=== PATIENT | female | born 1950 | race Caucasian/White ===

== ENCOUNTER 2019-07-22 10:48 | Outpatient (CLI) | payer MEDICARE, SELFPAY ==
--- NOTE | ~2019-07-22 | XR_ITS ---
XR chest 2V DATE: 07/22/2019 11:25 INDICATION: Pneumonia TECHNIQUE: 2 views COMPARISON: 08/19/2018 2 view chest FINDINGS: Cardiomegaly. Mild discoid atelectasis or more likely scarring at the lower lung zones. No pulmonary infiltrate or consolidation. No pulmonary vascular congestion or pleural effusion or pneumo thorax. Osteopenia. Dextroscoliosis of the thoracolumbar spine. IMPRESSION: Cardiomegaly Mild discoid atelectasis or scarring in the lower lung zones; no pulmonary consolidation is evident Reviewed, dictated and finalized at location B. IMPRESSION: Cardiomegaly Mild discoid atelectasis or scarring in the lower lung zones; no pulmonary cons olidation is evident
--- NOTE | ~2019-07-22 | US_ITS ---
EXAMINATION: US thyroid DATE: 07/22/2019 11:25 INDICATION: Nontoxic single thyroid nodule. TECHNIQUE: Multiple ultrasound images of the thyroid were obtained. COMPARISON: None. FINDINGS: The right thyroid lobe measures 5.6 x 1.8 x 1.9 cm. The left thyroid lobe measures 5.2 x 1.7 x 2.6 c m. In the right thyroid lobe, there is a 1.6 cm solid, hypoechoic, cslcb-pnvd-fimb nodule with ill-d efined margin without echogenic foci (TI-RADS TR4). In the left thyroid lobe, there is a 2.5 cm solid , hypoechoic, oevav-gckq-lwls nodule with ill-defined margin without echogenic foci (TR4). In the lef t thyroid lobe, there is a 10 mm solid, hypoechoic, zfspc-hasf-qnvx nodule with smooth margin without echogenic foci (TR4). IMPRESSION: 1. Multinodular goiter. Ultrasound-guided fine needle aspiration of the 2 largest nodules is recommen ded. Reviewed, dictated and finalized at location A. IMPRESSION: 1. Multinodular goiter. Ultrasound-guided fine needle aspiration of the [address] nodules is recommended.
== END 2019-07-22 10:49 ==
PROVIDERS: PCP Internal Medicine; Visit Provider Nurse Practitioner
DX: J18.9 Pneumonia, unspecified organism (principal); E04.2 Nontoxic multinodular goiter; I51.7 Cardiomegaly
CPT/HCPCS: 71046; 76536

== ENCOUNTER 2019-09-01 13:24 | Outpatient (CLI) | payer MEDICARE, SELFPAY ==
--- NOTE | ~2019-09-01 | US_ITS ---
EXAMINATION: US biopsy thyroid, US FNA additional DATE: 09/01/2019 14:59 INDICATION: Thyroid nodules. TECHNIQUE: The procedure and its benefits, risks, and benefits were discussed with the patient. Risks specifical ly discussed included bleeding. The patient verbalized understanding of the risks and agreed to proce ed. The neck was prepped and draped in the usual sterile manner. 1% lidocaine was used for local ane sthesia. 5 passes were made with a 25G needle into the lesion in right thyroid lobe. Appropriate ne edle location was documented with continuous sonographic guidance. 5 passes were made with a 25-gauge needle into the lesion in left thyroid lobe. Appropriate needle lo cation was documented with continuous sonographic guidance. There were no immediate complications. Th e patient understood to call the ordering physician for results after a week and a half and verbalize d that understanding. FINDINGS: Grayscale ultrasound images demonstrate needles advanced into a 1.6 cm nodule in right thyroid lobe f or biopsy. Grayscale ultrasound images demonstrate needles advanced into a 2.5 cm nodule in left thyr oid lobe. IMPRESSION: 1. Ultrasound-guided fine needle aspiration of a right thyroid nodule. 2. Ultrasound-guided fine-needle aspiration of a left thyroid nodule. Reviewed, dictated and finalized at location A. IMPRESSION: 1. Ultrasound-guided fine needle aspiration of a right thyroid nodule. 2. Ultrasound-guided fine-needle aspiration of a left thyroid nodule.
== END 2019-09-01 13:25 | disposition home or self-care (01) ==
PROVIDERS: PCP Internal Medicine; Visit Provider Internal Medicine
DX: E04.1 Nontoxic single thyroid nodule (principal)
CPT/HCPCS: 10005; 10006; 60100; 76942; 88108; 88173; 88305

== ENCOUNTER 2019-09-20 13:27 | Outpatient (CLI) | payer MEDICARE, SELFPAY ==
--- NOTE | ~2019-09-20 | US_ITS ---
EXAMINATION: US FNA w image guidance DATE: 09/20/2019 14:46 INDICATION: Nontoxic right thyroid nodule. TECHNIQUE: The procedure and its benefits, risks, and benefits were discussed with the patient. Risks specifical ly discussed included bleeding. The patient verbalized understanding of the risks and agreed to proce ed. The neck was prepped and draped in the usual sterile manner. 1% lidocaine was used for local ane sthesia. 5 passes were made with a 25G needle into the lesion. Appropriate needle location was docu mented with continuous sonographic guidance. There were no immediate complications. The patient unde rstood to call the ordering physician for results after a week and a half and verbalized that underst anding. FINDINGS: Grayscale ultrasound images demonstrate needles advanced into a 1.6 cm nodule in right thyroid lobe f or biopsy. IMPRESSION: 1. Ultrasound-guided fine needle aspiration of a right thyroid nodule. Reviewed, dictated and finalized at location A.
== END 2019-09-20 13:28 | disposition home or self-care (01) ==
LOC: ANHIMG 13:29
PROVIDERS: PCP Internal Medicine; Visit Provider Internal Medicine
DX: E04.1 Nontoxic single thyroid nodule (principal)
CPT/HCPCS: 10005; 88108; 88173; 88305

== ENCOUNTER 2019-12-14 11:47 | Outpatient (CLI) | payer MEDICARE, SELFPAY ==
--- NOTE | ~2019-12-14 | US_ITS ---
EXAMINATION: US renal BI DATE: 12/14/2019 12:36 INDICATION: Kidney stones. Bilateral flank pain. TECHNIQUE: Multiple ultrasound grayscale images of the kidneys were obtained. COMPARISON: Abdomen radiographs 06/15/2019 FINDINGS: The right kidney measures 9.0 x 5.4 x 5.0 cm. The left kidney measures 11.5 x 5.5 x 5.0 cm. The kidne ys demonstrate normal parenchymal echogenicity. There is a 1.5 cm cyst in right kidney. There is a sh adowing stone in right kidney measuring approximately 11 mm. There is no hydronephrosis. The bladder is decompressed. IMPRESSION: 1. Nonobstructing right kidney stone. Reviewed, dictated and finalized at location B.
--- NOTE | ~2019-12-14 | XR_ITS ---
XR abdomen/kub 1V 12/14/2019 12:21 Indication: Kidney stone Procedure: KUB Comparison: 02/20/2018 Findings: Bowel gas pattern is nonobstructive. There is a large amount of retained fecal material in the colon which limits evaluation for renal stones. Nonobstructive bowel gas pattern. There is modera te lower thoracic and lumbar spondylosis with dextroscoliosis. No acute osseous abnormality. There ar e cholecystectomy clips. Impression: 1: Nonobstructive bowel gas pattern with moderate colonic fecal loading. Limited visualization for re nal stones. Reviewed, dictated and finalized at location A. Impression: 1: Nonobstructive bowel gas pattern with moderate colonic fecal loading. Limite d visualization for renal stones.
== END 2019-12-14 11:48 ==
PROVIDERS: PCP Internal Medicine; Visit Provider Urology
DX: N20.0 Calculus of kidney (principal)
CPT/HCPCS: 74018; 76775

== ENCOUNTER 2020-01-10 14:02 | Inpatient (IN) | payer MEDICARE, SELFPAY ==
[2020-01-10] VITALS (9 sets, daily range): BP systolic 97–142; BP diastolic 56–90; PULSE 72–130; RESP 14–20; TEMP 36.3–36.7; O2SAT 96–100; BMI 52.0
--- NOTE | ~2020-01-10 | XR_ITS ---
XR chest 2V 01/10/2020 15:30 Indication: Shortness of breath. CHF. COPD Procedure: AP and lateral views of the chest Comparison: Comparison to multiple prior studies sequentially, with oldest reviewed study dated 10/30. Findings: Moderate cardiomegaly. No focal air space disease, pulmonary edema, pleural effusion or nicolle pected pneumothorax. No acute osseous abnormality. Impression: 1: No acute cardiopulmonary disease. Reviewed, dictated and finalized at location A. Impression: 1: No acute cardiopulmonary disease.
--- NOTE | 2020-01-10 14:20 | ECG_ITS ---
Measurements Intervals [place] Rate: 131 P: NC: 0 QRS: 6 QRSD: 100 T: 84 QT: 280 QTc: 413 Interpretive Statements ATRIAL FIBRILLATION WITH RAPID VENTRICULAR RESPONSE LOW QRS VOLTAGE IN PRECORDIAL LEADS CANNOT RULE OUT SEPTAL INFARCT, AGE INDETERMINATE ST-T WAVE ABNORMALITY IN HIGH LATERAL LEADS- CONSIDER ISCHEMIA ABNORMAL ECG Electronically Signed On 01-10-2020 14:26:55 CDT by Tyrone Thompson D.O.
[2020-01-10 14:35] LABS: Basophils Percent Auto 0.2 % (0.2-1.2); Eosinophils Absolute Auto 0.2 K/mm3 (0-0.3); Eosinophils Percent Auto 1.3 % (0-4.4); Hematocrit 37.3 % (37.0-47.0); Hemoglobin 11.3 g/dL (12.0-15.0); Immature Granulocyte Absolute 0.12 K/mm3 (0.00-0.031); Immature Granulocyte Percent A 1.1 % (0-0.5); Lymphocytes Percent Auto 11.6 % (18.3-44.2); Mean Corpuscular HGB Conc 30.3 g/dl (32-36); Mean Corpuscular Hemoglobin 25.7 pg (26-34); Mean Corpuscular Volume 84.8 fl (80-100); Mean Platelet Volume 9.6 fl (7.4-10.4); Monocytes Absolute Auto 0.5 K/mm3 (0.1-0.6); Monocytes Percent Auto 4.2 % (2.6-8.5); Neutrophils Absolute Auto 9.2 K/mm3 (1.3-6.7); Neutrophils Percent Auto 81.6 % (45.5-73.1); Platelet Count Result 262 k/mm3 (150-375); Red Cell Distribution Width 15.7 % (11.5-14.5); White Blood Count 11.2 K/mm3 (4.5-10.0)
[2020-01-10 14:46] LABS: Anion Gap 3 mmol/L (8-16); Blood Urea Nitrogen 31 mg/dL (7-17); Calcium 9.9 mg/dL (8.4-10.2); Carbon Dioxide 34 mmol/L (22-30); Chloride 100 mmol/L (98-107); Estimated CRCL calculation 60 ml/min; Estimated Glomerular Filt Rate 50; Glucose 167 mg/dL (65-105); Potassium 4.1 mmol/L (3.4-5.0); Sodium 137 mmol/L (137-145)
[2020-01-10 15:02] LABS: NT Pro B Type Natriuretic Pept 2220 PG/ML (5-100); Troponin I 0.091 ng/mL (0.000-0.034)
--- NOTE | 2020-01-10 15:26 | ED.SOB ---
HPI - SOB/Dyspnea General Chief Complaint: Arrhythmia/Palpitations Stated Complaint: fast heart rate Time Seen by Provider: 01/10/20 14:40 Source: patient and old records reviewed Mode of arrival: ambulatory Limitations: no limitations History of Present Illness HPI Narrative: 69-year-old female Past medical history of COPD chronic atrial fibrillation lymphedema diabetes and morbid obesity Recently she was hospitalized at [facility] in [place], possibly for pneumonia, although on review of the records which have been scanned in it does not sound like that diagnosis was particularly clear-cut She had a follow-up appointment in the office today with Dr. 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 Dr. Newell does not believe that she is actually taking Bystolic MD elicited complaint: shortness of breath Pertinent past history: COPD, diabetes, pneumonia and other (A. fib) Onset (ago): day(s) Related Data Home Medications Medication Instructions Recorded Confirmed bisoprolol fumarate 5 mg tablet 5 mg PO DAILY 05/06/19 01/10/20 fluticasone fur. 100 mcg-umeclid 1 inhalation INHALATION Q24H 05/06/19 01/10/20 62.5 mcg-vilant 25 mcg inhalat.powder montelukast 10 mg tablet 10 mg PO DAILY 05/06/19 01/10/20 prochlorperazine maleate 10 mg See Rx Instructions .ROUTE 11/22/19 01/10/20 tablet .COMPLEX tablet sertraline 25 mg tablet 25 mg PO DAILY tablet 11/22/19 11/22/19 insulin glargine 100 unit/mL (3 See Rx Instructions SUB-Q DAILY ml 01/06/20 01/10/20 mL) subcutaneous pen furosemide 40 mg tablet 60 mg PO QAM tablet 01/10/20 01/10/20 lisinopril 10 mg tablet 5 mg PO DAILY tablet 01/10/20 01/10/20 rivaroxaban [Xarelto] mg 01/10/20 01/10/20 Allergies Allergy/AdvReac Type Severity Reaction Status Date / Time clindamycin Allergy Unknown Dry Mouth Verified 01/10/20 15:34 Penicillins Allergy Unknown Unknown, Verified 01/10/20 15:34 per patient report Review of Systems Review of Systems: All systems reviewed & are unremarkable except as noted in HPI and below Constitutional: Constitutional: Denies chills, Reports fatigue, Denies fever(s), Denies headache(s) and Denies night sweats Eyes: Eyes: Reports no additional eye complaints, Denies loss of vision and Denies other visual disturbances ENT: Denies headache(s), Denies hoarseness, Denies nasal congestion and Denies sore throat Cardiovascular: Cardiovascular: Denies chest pain, Denies leg edema, Denies palpitations and Denies dyspnea Respiratory: Respiratory: Denies cough, Reports dyspnea and Denies wheezing Gastrointestinal: Gastrointestinal: Denies abdominal pain, Denies diarrhea, Denies nausea and Denies vomiting Genitourinary: Genitourinary: Denies hematuria, Denies urinary frequency and Denies dysuria Musculoskeletal: Musculoskeletal: Denies abnormal gait, Denies deformity, Reports joint swelling, Denies muscle weakness and Denies numbness Integumentary/Breasts: Skin/Breast: Reports rash, Denies unusual bruising and Denies wounds Neurologic: Denies abnormal gait, Denies headache(s), Denies focal weakness, Denies loss of vision and Denies numbness Psychiatric: Psychiatric: Reports no additional psychiatric complaints Endocrine: Endocrine: Reports fatigue and Denies palpitations Hematologic/Lymphatic: Hematologic/Lymphatic: Denies easy bleeding and Denies easy bruising Allergic/Immunologic: Allergic/Immunologic: Denies wheezing PMFSH Social History Social History (Reviewed 01/10/20 @ 13:25 by Uma
[2020-01-10] MEDS: ASPIRIN 81 MG CHEWABLE TABLET 324 MG PO (15:58)
[2020-01-10] MEDS: METOPROLOL TARTRATE INJ 5 MG/5 ML VIAL 15 MG (15:58)
[2020-01-10 17:00] LABS: INR 1.1; Partial Thromboplastin Time 25.6 SECONDS (22.3-36.8)
[2020-01-10] MEDS: BUMETANIDE INJ 1 MG/4 ML VIAL IV PUSH (18:00)
--- NOTE | 2020-01-10 18:33 | PC.NURSE ---
This patient, Teena Luogn, was admitted to IMU Room 206-01. Patient/family oriented to hospital policies and general routines including ID bracelet, bed and alarms, visiting hours, pain management, procedures, bathroom and other care routines, personal items, smoking policy, room service/diet, and visiting hours. Valuables list has been completed. Information on how to activate the Rapid Response Team has been discussed. Patient/Family are encouraged to report perceived risks to care and to ask questions if they do not understand what they are told or what they should do.
[2020-01-10 18:37] LABS: Troponin I 0.092 ng/mL (0.000-0.034)
[2020-01-10 21:22] LABS: Troponin I 0.084 ng/mL (0.000-0.034)
[2020-01-10] MEDS: oxyCODONE HCL (*CRX) 5 MG TAB IR 15 MG PO (21:40)
[2020-01-10] MEDS: LORazepam (*CRX) 0.5 MG TABLET PO (21:41)
[2020-01-10] MEDS: FUROSEMIDE INJ 40 MG/4 ML VIAL IV PUSH (21:41)
[2020-01-10] MEDS: GABAPENTIN 300 MG CAPSULE PO (21:41)
[2020-01-10] MEDS: ACETAMINOPHEN 325 MG TABLET 650 MG PO (21:41)
[2020-01-10] MEDS: INSULIN GLARGINE (*BKC) 100 UNITS/ML 6 UNITS SUB-Q (21:43)
[2020-01-10 21:48] LABS: Glucose Point of Care 189 (65-105)
[2020-01-10] MEDS: RIVAROXABAN 20 MG TABLET PO (22:14)
--- NOTE | 2020-01-10 22:49 | PM.IMHP ---
H&P: HPI History of Present Illness Date/Time: 01/10/20 22:49 Chief complaint: AF W/RVR,ELEVATED TROPONION,CHF Narrative: Teena Luong is a 69 year old female with a past medical history of systolic heart failure, paroxysmal atrial fibrillation, obstructive sleep apnea and chronic lymphedema who presented to the ER after referral from primary care physician's office due to shortness of breath and AFib RVR.The patient reports that since she was discharged from [facility] on the she has been having intermittent episodes of heart racing. These episodes can occur while she is sitting still . They are accompanied by increasing shortness of breath. She denies any chest pain. She has chronic lymphedema and states that her legs are always swollen. She cannot tell if she has had more edema. She has been compliant with her home Lasix. When she was discharged from [facility] her Lasix was increased from 40 mg a day to 60 mg a day. 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 Ling at [place]. She has not been compliant with her CPAP. She has not used it in 6-8 months. She has not been able to sleep laying in bed for about 6-8 months and is sleeping in a recliner. She reports that she cannot get her legs up into her bed because it is too high. Usually when she does sleep in a bed she sleeps on her stomach. She denies any cough, congestion, fevers or chills. Review of Systems Review of Systems: Narrative: 12 systems were reviewed with pertinent positives and negatives per HPI. Except as documented in the HPI, all other systems were reviewed and are negative. [facility] Past Medical History Medical History (Updated 01/10/20 @ 23:29 by Bethany Santa DO) BMI greater than 40 Chronic kidney disease, stage III (moderate) Chronic obstructive pulmonary disease, unspecified Chronic respiratory failure with hypoxia, on home O2 therapy Chronic systolic heart failure Degenerative joint disease of knee Essential (primary) hypertension Hyponatremia Iron deficiency anemia Lumbar degenerative disc disease with chronic lumbago Lymphedema of both lower extremities Memory loss Moderate episode of recurrent major depressive disorder Nephrolithiasis right ureteral stent September 2019 with cystoscopy and right ureters copy with laser lithotripsy with stent exchange managed by Dr. Chung LEONCIO on CPAP Paroxysmal atrial fibrillation Primary osteoarthritis of both knees Pulmonary hypertension Thyroid Nodule benign pathology September 2019 Type 2 diabetes mellitus with other specified complication Unspecified diastolic (congestive) heart failure Vitamin D deficiency Vocal cord paralysis Surgical History Surgical History (Updated 01/10/20 @ 23:15 by Bethany Santa DO) History of section x3 History of dilation and curettage Hx of tonsillectomy Normal colonoscopy July 2009 demonstrating internal hemorrhoids Family History Family History Mother Carcinoma of colon, Onset Age: 59 Sibling Family history of malignant melanoma Family history of arthritis Acute myocardial infarction Chronic obstructive pulmonary disease Congestive heart failure Father Brain aneurysm Daughter , 2014 Cholangiocarcinoma Sibling Congestive heart failure Skin cancer Social History Social History (Updated 01/10/20 @ 23:21 by Bethany Santa DO) Social History: She is and lives in [facility] with her 15-year-old grandson and twin 17-year-old granddaughter is that she is raised since her daughter in 2014. Surrogate decision maker: Daphnie Luong Code status: Full code Primary care provider: Dr. Alden Newell Smoking status: Never smoker Second hand tobacco smoke exposure: Yes () Alcohol intake: never Substance use: never Spiritual care concerns: No Meds Home Medications and Allergies Home Medications Medic
[2020-01-11] VITALS (14 sets, daily range): BP systolic 97–118; BP diastolic 54–91; PULSE 64–106; RESP 18–22; TEMP 35.6–37.1; O2SAT 95–100; BMI 52.0
--- NOTE | 2020-01-11 | ECHO_ITS ---
Patient Info Name: Teena Luong Age: 69 years : 1950 Gender: Female Ht: 64 in Wt: 302 lbs BSA: 2.57 m2 HR: 104 bpm BP: 111 / 91 mmHg Heart Rhythm: Atrial Fibrillation Technical Quality: Good Exam Date: 01/11/2020 2:20 PM Exam Location: [facility] Pul[facility] Patient Status: Inpatient Admit Date: 01/10/2020 Staff Ordering Physician: Juan Ramon Engle MD Fire Hose Curer: Ricardo Herrera, BOAZCS, RT Attending Provider: Dean Shankar MD Referring Physician: Oniel SEGUNDO; Exam Type: CA echo doppler color flow Study Info Indications I27.0 - Primary pulmonary hypertension Complete two-dimensional, color flow and Doppler transthoracic echocardiogram is performed. Strain analysis performed. Summary 1. Complete two-dimensional, color flow and Doppler transthoracic echocardiogram is performed. 2. Left ventricular chamber dimension is mildly enlarged. 3. Left ventricular systolic function is mildly reduced, estimated at 45-50%. 4. There is mildly increased left ventricular wall thickness. 5. The left ventricular diastolic function is abnormal. 6. Global longitudinal strain is abnormal at -11 %. 7. Right ventricular chamber dimension is moderately enlarged. 8. Right ventricular systolic function is reduced. 9. Left atrial chamber dimension is severely enlarged. 10. Right atrial chamber dimension is severely enlarged. 11. There is moderate mitral valve regurgitation. 12. There is mild tricuspid valve regurgitation. 13. Moderate pulmonary hypertension, estimated pulmonary arterial systolic pressure is 51 mmHg. 14. Strain analysis performed. Left Ventricle Left ventricular chamber dimension is mildly enlarged. Left ventricular systolic function is mildly reduced, estimated at 45-50%. There is mildly increased left ventricular wall thickness. The left ventricular diastolic function is abnormal. Global longitudinal strain is abnormal at -11 %. Right Ventricle Right ventricular chamber dimension is moderately enlarged. Right ventricular systolic function is reduced. Left Atria Left atrial chamber dimension is severely enlarged. Right Atria Right atrial chamber dimension is severely enlarged. Atrial Septum Intact interatrial septum visualized by color flow imaging. Aortic Valve The aortic valve is trileaflet. There is mild aortic valve sclerosis. There is no aortic valve stenosis. There is trace aortic valve regurgitation. Pulmonic Valve The pulmonic valve is normal. There is no pulmonic valve stenosis. There is trace pulmonic regurgitation. Mitral Valve The mitral valve has calcified annulus. There is no mitral valve stenosis. There is moderate mitral valve regurgitation. Tricuspid Valve The tricuspid valve leaflets are normal. There is no significant tricuspid valve stenosis. There is mild tricuspid valve regurgitation. Moderate pulmonary hypertension, estimated pulmonary arterial systolic pressure is 51 mmHg. Pericardium/Pleural The pericardium appears normal. There is trivial pericardial effusion. Inferior Vena Cava Dilated inferior vena cava with <50% collapse upon inspiration consistent with elevated right atrial pressure, 15 mmHg. Aorta The aortic root size at the sinus of Valsalva is normal. The prox ascending aorta size is normal. Left Ventricular Outflow Tract Name Value Normal
[2020-01-11 07:41] LABS: Glucose Point of Care 114 (65-105)
[2020-01-11] MEDS: lisinopriL 5 MG TABLET PO (08:54)
[2020-01-11] MEDS: ASPIRIN 81 MG CHEWABLE TABLET PO (08:54)
[2020-01-11] MEDS: MONTELUKAST SODIUM 10 MG TABLET PO (08:55)
[2020-01-11] MEDS: SERTRALINE HCL 50 MG TABLET PO (08:55)
[2020-01-11] MEDS: INSULIN GLARGINE (*BKC) 100 UNITS/ML 14 UNITS SUB-Q (08:58)
[2020-01-11] MEDS: oxyCODONE HCL (*CRX) 5 MG TAB IR 15 MG PO ×3 (09:14→21:15)
[2020-01-11] MEDS: FUROSEMIDE INJ 40 MG/4 ML VIAL IV PUSH ×2 (09:16→21:15)
[2020-01-11 10:04] LABS: Anion Gap 5 mmol/L (8-16); Blood Urea Nitrogen 28 mg/dL (7-17); Calcium 9.3 mg/dL (8.4-10.2); Carbon Dioxide 37 mmol/L (22-30); Chloride 96 mmol/L (98-107); Estimated CRCL calculation 61 ml/min; Estimated Glomerular Filt Rate 50; Glucose 154 mg/dL (65-105); Potassium 4.2 mmol/L (3.4-5.0); Sodium 138 mmol/L (137-145)
--- NOTE | 2020-01-11 10:11 | PM.CNCAR ---
Assessment and Plan Assessment and plan (1) Persistent atrial fibrillation: Code(s): I48.19 - Other persistent atrial fibrillation Status: Acute Assessment and Plan: patient has persistent atrial fibrillation. Continue current beta-ty without change. Continue Xarelto. (2) CHF (congestive heart failure): Qualifiers: Heart failure chronicity: acute on chronic Heart failure type: diastolic Qualified Code(s): I50.33 - Acute on chronic diastolic (congestive) heart failure Code(s): I50.9 - Heart failure, unspecified Status: Acute Assessment and Plan: It is likely diastolic in etiology plus/minus right heart failure from untreated sleep apnea. furosemide 40 mg IV q.12 hours. Potassium replacement to keep above 4.0. Continue her current lisinopril dose. 2D echocardiogram and Doppler will be ordered. okay to move off of IMU and onto Medicine with telemetry (3) Elevated troponin: Code(s): R79.89 - Other specified abnormal findings of blood chemistry Status: Acute Assessment and Plan: Not related to ACS. 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 Meraz at [place]. She has a history of persistent atrial fibrillation, sleep apnea, chronic lymphedema, right heart failure as well as previously to cardiomyopathy which has improved with rate control. Ejection fraction in October 2019 had increased up to 60% with moderate pulmonary hypertension RVSP of 50-55. She has been hospitalized twice at [facility] for pneumonia. She went home and progressively has been more short of breath since discharged on the 04 of January. She has spells whenever she feels like she simply can't breathe. Will last for several hours until she takes an Ativan calms herself down. She came to hospital because of the symptoms and she was found to be in atrial fibrillation with rapid ventricular response. She was given IV diuretics. She is now feeling better. She does have worsening palpitations during the times in which she is short of breath. She denies any syncope, presyncope, paroxysmal nocturnal dyspnea, orthopnea. She has edema which is actually better than usual. No significant bleeding problems. Cardiac history consists of a normal coronary angiogram several years ago. Atrial fibrillation which failed antiarrhythmic therapy and she is now on rate control strategy. Chronic anticoagulation. She also has right heart enlargement and RV systolic dysfunction probably from untreated sleep apnea Prieb. Pulmonary pressures most recently around 55 mmHg. Review of Systems Review of Systems: All systems reviewed & are unremarkable except as noted in HPI and below Constitutional: Constitutional: Reports weakness Eyes: Eyes: Denies blurry vision ENT: Reports Normal hearing present and Denies epistaxis Cardiovascular: Cardiovascular: Denies chest pain, Reports pedal edema and Reports leg edema Respiratory: Respiratory: Reports dyspnea and Reports dy
[2020-01-11 12:26] LABS: Glucose Point of Care 122 (65-105)
[2020-01-11] MEDS: bisoproloL fumarate 5 MG TABLET 10 MG PO (12:42)
--- NOTE | 2020-01-11 15:00 | PM.IMPN ---
Progress Note: A&P Assessment and Plan (1) Uncontrolled atrial fibrillation: Code(s): I48.91 - Unspecified atrial fibrillation Status: Acute Assessment and Plan: the patient's heart rate has been well controlled since she received a dose of IV metoprolol in the ER and now back on her maintenance beta-ty Cardiology has been consulted regarding adjustments and cardiac medication. and no further changes made. (2) Elevated troponin: Code(s): R79.89 - Other specified abnormal findings of blood chemistry Status: Acute Assessment and Plan: Secondary to demand ischemia. The patient's troponins are trending downward no true ischemic event. (3) CHF (congestive heart failure): Qualifiers: Heart failure chronicity: acute on chronic Heart failure type: diastolic Qualified Code(s): I50.33 - Acute on chronic diastolic (congestive) heart failure Code(s): I50.9 - Heart failure, unspecified Status: Acute Assessment and Plan: Acute on chronic CHF likely due to medication non adherence and uncontrolled atrial fibrillation. Patient received 1 dose of IV Bumex in the ER. Will hold the patient's home Lasix 60 mg daily and continue patient on Lasix 40 mg IV b.i.d.. (4) Sleep apnea: Code(s): G47.30 - Sleep apnea, unspecified Status: Acute Assessment and Plan: the patient is noncompliant with her CPAP therapy. The importance of CPAP therapy in treatment of atrial fibrillation in heart failure was discussed with the patient. She is willing to try a his CPAP. Subjective Date/time seen: 01/11/20 15:00 Interval history: Date visit of visit 01/10. 69-year-old hypertensive type 2 diabetic chronic AFib and history of diastolic heart failure admitted with increasing shortness of breath. Found to be in rapid AFib and with rate controlled and IV diuresis she is feeling better. States that her edema is not as bad as it usually is. Exam Narrative: Exam Narrative: Blood pressure 110/80 pulse is 90 irregular sat 98% on 3 L nasal cannula afebrile neck supple no adenopathy pupils equal reactive to light sclera anicteric lungs clear no wheezing or consolidation CV irregular no murmurs heard abdomen obese nontender no masses extremities some venous stasis changes and lymphedema type picture but there is some wrinkling of the skin which is indication there had been more edema in the past which she agrees to. Still some pitting. Neuro alert cooperative no focal deficits Objective Data Vital Signs Vital Signs: Vital Signs - 24 hr 01/10/20 15:33 01/10/20 15:47 01/10/20 15:58 Temperature Pulse Rate 112 H 88 112 H Respiratory Rate 15 14 Blood Pressure 124/56 L 136/71 Pulse Oximetry 96 100 01/10/20 17:15 01/10/20 18:55 01/10/20 19:29 Temperature 36.3 C L 36.6 C Pulse Rate 87 83 72 Respiratory Rate 17 20 18 Blood Pressure 142/90 H 122/73 97/57 L Pulse Oximetry 96 100 97 01/10/20 20:00 01/10/20 22:00 01/11/20 00:00 Temperature 36.6 C Pulse Rate 72 90 96 Respiratory Rate 18 20 Blood Pressure 106/60 Pulse Oximetry 97 97 01/11/20 02:00 01/11/20 04:00 01/11/20 06:00 Temperature 36.6 C Pulse Rate 89 88 83 Respiratory Rate 20 Blood Pressure 101/55 L Pulse Oximetry 97 01/11/20 08:12 01/11/20 10:00 01/11/20 10:46 Temperature 35.6 C L Pulse Rate 87 82 Respiratory Rate 22 H Blood Pressure 102/72 118/71 Pulse Oximetry 100 95 01/11/20 12:00 01/11/20 12:42 Temperature 37.1 C Pulse Rate 91 100 Respiratory Rate 22 H Blood Pressure 111/91 H Pulse Oximetry 100 Intake/Output Intake/Output: Intake & Output 01/08/20 01/09/20 01/10/20 01/11/20 23:59 23:59 23:59 23:59 Intake Total 1150 Output Total 2150 Balance -1000 Meds/Results Medications: Active Medications Generic Name Dose Route Start Last Admin Trade Name Freq PRN Reason Stop Dose Admin Acetaminophen
[2020-01-11 16:37] LABS: Glucose Point of Care 129 (65-105)
[2020-01-11] MEDS: RIVAROXABAN 20 MG TABLET PO (18:46)
[2020-01-11 20:10] LABS: Glucose Point of Care 164 (65-105)
[2020-01-11] MEDS: GABAPENTIN 300 MG CAPSULE PO (21:15)
[2020-01-11] MEDS: LORazepam (*CRX) 0.5 MG TABLET PO (21:15)
[2020-01-11] MEDS: ACETAMINOPHEN 325 MG TABLET 650 MG PO (21:16)
[2020-01-11] MEDS: INSULIN GLARGINE (*BKC) 100 UNITS/ML 6 UNITS SUB-Q (21:17)
[2020-01-12] VITALS (8 sets, daily range): BP systolic 98–124; BP diastolic 53–69; PULSE 55–75; RESP 20–22; TEMP 36.4–36.7; O2SAT 94–100
[2020-01-12 05:06] LABS: Anion Gap 3 mmol/L (8-16); Blood Urea Nitrogen 33 mg/dL (7-17); Calcium 9.1 mg/dL (8.4-10.2); Carbon Dioxide 37 mmol/L (22-30); Chloride 96 mmol/L (98-107); Estimated CRCL calculation 52 ml/min; Estimated Glomerular Filt Rate 41; Glucose 111 mg/dL (65-105); Potassium 4.5 mmol/L (3.4-5.0); Sodium 136 mmol/L (137-145)
[2020-01-12] MEDS: oxyCODONE HCL (*CRX) 5 MG TAB IR 15 MG PO ×2 (06:01→13:42)
[2020-01-12 07:54] LABS: Glucose Point of Care 115 (65-105)
[2020-01-12] MEDS: lisinopriL 5 MG TABLET PO (08:42)
[2020-01-12] MEDS: bisoproloL fumarate 5 MG TABLET 10 MG PO (08:42)
[2020-01-12] MEDS: MONTELUKAST SODIUM 10 MG TABLET PO (08:42)
[2020-01-12] MEDS: ASPIRIN 81 MG CHEWABLE TABLET PO (08:43)
[2020-01-12] MEDS: SERTRALINE HCL 50 MG TABLET PO (08:43)
[2020-01-12] MEDS: FUROSEMIDE INJ 40 MG/4 ML VIAL IV PUSH (08:44)
[2020-01-12] MEDS: INSULIN GLARGINE (*BKC) 100 UNITS/ML 14 UNITS SUB-Q (08:44)
[2020-01-12] MEDS: ACETAMINOPHEN 325 MG TABLET 650 MG PO (09:46)
[2020-01-12] MEDS: LORazepam (*CRX) 0.5 MG TABLET PO (10:27)
[2020-01-12 11:24] LABS: Glucose Point of Care 114 (65-105)
--- NOTE | 2020-01-12 11:58 | PM.PNCARD ---
Progress Note: A&P Assessment and Plan (1) Persistent atrial fibrillation: Code(s): I48.19 - Other persistent atrial fibrillation Status: Acute Assessment and Plan: patient has persistent atrial fibrillation. Continue current beta-ty without change. Continue Xarelto. She does not need an outpatient monitor. (2) CHF (congestive heart failure): Qualifiers: Heart failure chronicity: acute on chronic Heart failure type: diastolic Qualified Code(s): I50.33 - Acute on chronic diastolic (congestive) heart failure Code(s): I50.9 - Heart failure, unspecified Status: Acute Assessment and Plan: Echo shows mildly reduced LV function. Moderate pulmonary hypertension. She has right heart failure related to untreated sleep apnea. I talked to her extensively about importance of compliance with CPAP therapy. She states she will retry talk this over with her rack worker as an outpatient. In my opinion, she is stable for discharge. I am going to stop her IV diuretic and switch her to oral furosemide 60 mg p.o. daily. Follow-up with Dr. Meraz in [place]. (3) Elevated troponin: Code(s): R79.89 - Other specified abnormal findings of blood chemistry Status: Acute Assessment and Plan: Not related to ACS. (4) Lymphedema of both lower extremities: Code(s): I89.0 - Lymphedema, not elsewhere classified Status: Acute Assessment and Plan: Better (5) Sleep apnea: Code(s): G47.30 - Sleep apnea, unspecified Status: Acute Assessment and Plan: not on CPAP (6) Pulmonary hypertension: Code(s): I27.20 - Pulmonary hypertension, unspecified Status: Acute Assessment and Plan: moderate (7) Chronic anticoagulation: Code(s): Z79.01 - medical terminologist (current) use of anticoagulants Status: Acute Assessment and Plan: no bleeding problems (8) LEONCIO on CPAP: Code(s): G47.33 - Obstructive sleep apnea (adult) (pediatric); Z99.89 - Dependence on other enabling machines and devices Status: Acute Assessment and Plan: Vitally important for her to be compliant with CPAP therapy Subjective Date/time seen: 01/12/20 11:58 Interval history: Date visit of visit 01/12/20. 69-year-old hypertensive type 2 diabetic chronic AFib and history of diastolic heart failure admitted with increasing shortness of breath. Found to be in rapid AFib and with rate controlled and IV diuresis she states that she is doing okay today. Feels RI without any chest pain or shortness of breath. Swelling is better. Review of Systems Review of Systems: All systems reviewed & are unremarkable except as noted in HPI and below Constitutional: Constitutional: Denies fatigue, Denies headache(s) and Reports weakness Eyes: Eyes: Denies blurry vision ENT: Reports Normal hearing present, Denies headache(s), Denies lip swelling, Denies epistaxis and Denies neck pain Cardiovascular: Cardiovascular: Denies chest pain, Reports pedal edema, Reports leg edema, Reports dyspnea and Reports dyspnea on exertion Respiratory: Respiratory: Reports dyspnea and Reports dyspnea on exertion Gastrointestinal: Gastrointestinal: Denies abdominal pain Genitourinary: Genitourinary: Denies hematuria and Denies flank pain Musculoskeletal: Musculoskeletal: Denies neck pain Integumentary/Breasts: Skin/Breast: Denies dry skin Neurologic: Reports Normal hearing present, Denies headache(s) and Reports weakness Psychiatric: Psychiatric: Reports anxiety Endocrine: Endocrine: Denies fatigue Hematologic/Lymphatic: Hematologic/Lymphatic: Denies easy bleeding Allergic/Immunologic: Allergic/Immunologic: Denies GI upset with certain foods and Denies lip swelling Exam Narrative: Exam Narrative: Patient is awake alert and oriented appears to be in no acute distress. Appears her stated age Const: General: comfortable and no acute
--- NOTE | 2020-01-12 12:50 | PCOTNOTE ---
Attempted OT evaluation. Patient reports she is discharging home soon and declined OT evaluation. Patient's daughter present at time of OT attempt.
--- NOTE | 2020-01-12 17:38 | PM.DS ---
DS: Admitting Diagnosis Admitting Diagnosis Admitting Diagnosis: AF W/RVR,ELEVATED TROPONION,CHF DS: Discharge Diagnosis Discharge Diagnosis (1) Uncontrolled atrial fibrillation: Code(s): I48.91 - Unspecified atrial fibrillation Status: Acute Assessment and Plan: the patient's heart rate has been well controlled since she received a dose of IV metoprolol in the ER and now back on her maintenance beta-ty Continue to do well with pulse usually 70 the 90 Cardiology felt a lot of her arrhythmia problems were secondary to her sleep apnea and strongly encouraged her to revisit her annual campaign manager for possible different device since she has had trouble with the CPAP. Continue her anticoagulation with Xarelto (2) Elevated troponin: Code(s): R79.89 - Other specified abnormal findings of blood chemistry Status: Acute Assessment and Plan: Secondary to demand ischemia. The patient's troponins trended downward no true ischemic event. (3) CHF (congestive heart failure): Qualifiers: Heart failure chronicity: acute on chronic Heart failure type: diastolic Qualified Code(s): I50.33 - Acute on chronic diastolic (congestive) heart failure Code(s): I50.9 - Heart failure, unspecified Status: Acute Assessment and Plan: Acute on chronic CHF likely due to medication non adherence and uncontrolled atrial fibrillation. Patient received 1 dose of IV Bumex in the ER. IV Lasix while here and discharge back on her 60 mg p.o. Lasix daily. Echo ejection fraction 45-50% with some diastolic dysfunction and moderate pulmonary hypertension. (4) Sleep apnea: Code(s): G47.30 - Sleep apnea, unspecified Status: Acute Assessment and Plan: the patient is noncompliant with her CPAP therapy. The importance of CPAP therapy in treatment of atrial fibrillation in heart failure was discussed with the patient. She is willing to try again and will visit her annual campaign manager to see if any further changes can be made. DS: Summary Hospital Course Hospital Course: 69-year-old hypertensive diabetic with chronic AFib admitted with shortness of breath and AFib rapid ventricular response. Given dose of IV metoprolol in place back on her usual dose of beta-ty and ventricular response remained controlled. It was felt to most of her symptoms with secondary to diastolic and mild systolic heart failure possibly brought on by her sleep apnea. She is encouraged to follow-up with her annual campaign manager for further adjustments in CPAP or related device.. She had some short pauses while sleeping which were felt secondary to the apnea. Time Spent with Patient Time attestation: Total time spent providing and/or coordinating discharge services: 35 minutes Exam Narrative: Exam Narrative: condition on discharge blood pressure 124/58 pulse 74 irregular and sat 97% on 3 L nasal cannula lungs clear CV irregular no murmur abdomen obese extremities some chronic lymphedema but improved from admission neuro alert cooperative no focal deficits she was up and ambulating with physical therapy much improved from admission and able to be discharged home in stable condition. DS: Data Data Completed and Pending Labs on day of discharge: Labs from last 24 hours 01/12/20 01/12/20 01/12/20 11:17 07:40 04:10 Sodium 136 L Potassium 4.5 Chloride 96 L Carbon Dioxide 37 H Anion Gap 3 L BUN 33 H Creatinine 1.30 H Estim Creat Clear Calc 52 Estimated GFR 41 L Glucose 111 H POC Capillary Glucose 114 H 115 H Calcium 9.1 01/11/20 19:58 Sodium Potassium Chloride Carbon Dioxide Anion Gap BUN Creatinine Estim Creat Clear Calc Estimated GFR Glucose POC Capillary Glucose 164 H Calcium Preliminary micro results at discharge 01/10/20 16:42 Blood Culture - Preliminary Blood 01/10/20 16:42 Blood Culture - Prel
== END 2020-01-12 16:15 | disposition home health service (06) | DRG 308 ==
LOC: ANHED 15:41 → ANHIMU 20:13
PROVIDERS: Emergency Medicine; Admitting Provider Internal Medicine; Emergency Provider Emergency Medicine; PCP Internal Medicine; Visit Provider Internal Medicine
DX: I48.19 Other persistent atrial fibrillation (principal); I50.33 Acute on chronic diastolic (congestive) heart failure; J96.11 Chronic respiratory failure with hypoxia; I24.8 Other forms of acute ischemic heart disease; I13.0 Hypertensive heart and chronic kidney disease with heart failure and stage 1 through stage 4 chronic kidney disease, or unspecified chronic kidney disease; Z68.43 Body mass index [BMI] 50.0-59.9, adult; I27.20 Pulmonary hypertension, unspecified; E66.01 Morbid (severe) obesity due to excess calories; Z99.81 Dependence on supplemental oxygen; E11.22 Type 2 diabetes mellitus with diabetic chronic kidney disease; N18.3 Chronic kidney disease, stage 3 (moderate); G47.33 Obstructive sleep apnea (adult) (pediatric); I89.0 Lymphedema, not elsewhere classified; Z79.01 Long term (current) use of anticoagulants; Z79.4 Long term (current) use of insulin; Z91.14 Patient's other noncompliance with medication regimen; Z91.19 Patient's noncompliance with other medical treatment and regimen
CPT/HCPCS: 36415; 71046; 80048; 83605; 83880; 84484; 85025; 85610; 85730; 87040; 93005; 93306; 94640; 96374; 97161; 99285; A9270; J1815; J1940

== ENCOUNTER 2020-11-09 09:40 | Outpatient (NON) | payer MEDICARE, SELFPAY ==
[2020-11-09 10:05] LABS: Add Urine Microscopic? YES; Appearance Urine Cloudy (Clear); Bacteria Urine Trace /hpf; Bilirubin Urine Negative (Negative); Blood Urine 2+ (Negative); Calcium Oxalate Crystals Urine Many /hpf; Color Urine Amber (Yellow); Glucose Urine UA Negative (Negative); Ketones Urine Negative (Negative); Leukocyte Esterase Ur 3+ LEU/UL (Negative); Mucus Urine Rare /lpf; Nitrate Urine Positive (Negative); Protein Urine 1+ mg/dL (Negative); Specific Grav Ur 1.019 (1.001-1.035); Squamous Epithelial Cell Urine Occasional /hpf (Few); Urobilinogen Urine Negative mg/dL (<2.0); WBC Clumps Urine Present /HPF; WBC Urine >75 /hpf
== END 2020-11-09 09:41 | disposition home or self-care (01) ==
LOC: ANHLAB 09:41
PROVIDERS: PCP Internal Medicine; Visit Provider Internal Medicine
DX: R31.9 Hematuria, unspecified (principal)
CPT/HCPCS: 81001; 87077; 87086; 87088; 87186